=== PATIENT | female | born 1965 | race Caucasian/White ===

== ENCOUNTER 2016-11-27 19:22 | Emergency (ER) | payer MEDICARE ==
[2016-11-27 20:19] LABS: HEMOGLOBIN 11.1 gm/dl (12.3-15.3); RED BLOOD COUNT 3.7 M/UL (4.00-5.10); WHITE BLOOD COUNT 4.6 K/UL (4.5-11.0)
[2016-11-27 20:37] LABS: BUN/CREATININE RATIO 22 (0-10)
== END 2016-11-27 21:59 | disposition home or self-care (01) ==
LOC: ER1 19:22
PROVIDERS: Physician Assistant Medical
DX: J20.9 Acute bronchitis, unspecified (principal); E11.9 Type 2 diabetes mellitus without complications; I10 Essential (primary) hypertension; F41.9 Anxiety disorder, unspecified; F17.210 Nicotine dependence, cigarettes, uncomplicated; Z79.84 Long term (current) use of oral hypoglycemic drugs; Z79.899 Other long term (current) drug therapy
CPT/HCPCS: 36415; 71020; 80053; 85025; 87081; 87880; 94640; 94664; 99284

== ENCOUNTER 2017-01-02 18:45 | Emergency (ER) | payer MEDICARE | END 2017-01-02 21:51 | disposition left against medical advice (07) | LOC: ER1 18:45 | DX: Z53.21 Procedure and treatment not carried out due to patient leaving prior to being seen by health care provider (principal) ==